=== PATIENT | female | born 1995 | race Caucasian/White ===

== ENCOUNTER 2022-03-04 07:06 | Day surgery (SDC) | payer SELFPAY ==
[~2022-03-04] VITALS: Ht 167.6 cm; Wt 61.2 kg
[~2022-03-04 07:06] MED LIST: FLONASE AL50 MCG/ACT; OMEPRAZOLE20 MG PO; ONDANSETRON4 MG PO; PROPRANOLOL HCL20 MG PO
[2022-03-04 10:00] VITALS: BP 97/64
== END 2022-03-04 11:16 | disposition home or self-care (01) | DRG 392 ==
LOC: ENDO 07:06 → ORM 08:40 → ENDO 09:20
PROVIDERS: ATTEND Surgery
PROC: 0DBB8ZX Excision of Ileum, Via Natural or Artificial Opening Endoscopic, Diagnostic (ICD-10-PCS; principal; 2022-03-04)
PROC: 0DB98ZX Excision of Duodenum, Via Natural or Artificial Opening Endoscopic, Diagnostic (ICD-10-PCS; 2022-03-04)
PROC: 0DB68ZX Excision of Stomach, Via Natural or Artificial Opening Endoscopic, Diagnostic (ICD-10-PCS; 2022-03-04)
DX: K29.80 Duodenitis without bleeding (principal); K29.70 Gastritis, unspecified, without bleeding; K44.9 Diaphragmatic hernia without obstruction or gangrene; G40.909 Epilepsy, unspecified, not intractable, without status epilepticus; F41.9 Anxiety disorder, unspecified; Z90.49 Acquired absence of other specified parts of digestive tract